=== PATIENT | female | born 2000 | race Two or more races ===

== ENCOUNTER → 2024-08-19 | Emergency (ER) | payer OTHER ==
[~2024-08-19] VITALS: Ht 167.6 cm; Wt 59.9 kg
[~2024-08-19] MED LIST: ACETAMINOPHEN 500 MG GEL..CAP PO ONE; OSEL75CA PO; OSELTAMIVIR PHOSPHATE 75 MG CAPSULE PO ONE; TUSSIN DM LIQU118 ML PO; ZYRTEC10 MG PO
[2024-08-19 17:50] LABS: HEMATOCRIT 32.6 % (36.0-45.00); HEMOGLOBIN 10.9 g/dL (12.0-15.00); MEAN CELL VOLUME 87.6 fL (80.00-100.00); MEAN CORPUSCULAR HEMOGLOBIN 29.4 pg (27.00-32.0); MEAN CORPUSCULAR HGB CONC 33.5 g/dl (32.0-36.0); PLATELET COUNT 235 K/uL (150-450); RED BLOOD COUNT 3.73 M/uL (4.00-6.00); RED CELL DISTRIBUTION WIDTH 12.9 % (11.5-14.5)
[2024-08-19 18:10] LABS: INFLUENZA A AG NEGATIVE (NEGATIVE)
[2024-08-19 18:15] LABS: COVID-19 AG NEGATIVE (NEGATIVE)
== END | disposition home or self-care (01) ==
LOC: ER 16:42
PROVIDERS: General Practice
DX: J10.1 Influenza due to other identified influenza virus with other respiratory manifestations (principal); R53.81 Other malaise; Z20.822 Contact with and (suspected) exposure to COVID-19